=== PATIENT | male | born 1985 | race Caucasian/White ===

== ENCOUNTER 2016-11-14 19:29 | Emergency (ER) | payer MEDICAID | END 2016-11-14 21:02 | disposition home or self-care (01) | LOC: D.ER 19:29 | DX: M54.5 Low back pain (principal); Y04.2XXA Assault by strike against or bumped into by another person, initial encounter; Y93.89 Activity, other specified; Y92.89 Other specified places as the place of occurrence of the external cause; F17.200 Nicotine dependence, unspecified, uncomplicated ==

== ENCOUNTER 2017-08-27 14:48 | Emergency (ER) | payer OTHER | END 2017-08-27 17:42 | disposition home or self-care (01) | LOC: D.ER 14:48 | DX: S00.01XA Abrasion of scalp, initial encounter (principal); Y04.2XXA Assault by strike against or bumped into by another person, initial encounter; Y93.89 Activity, other specified; Y92.89 Other specified places as the place of occurrence of the external cause; S06.0X9A Concussion with loss of consciousness of unspecified duration, initial encounter; S16.1XXA Strain of muscle, fascia and tendon at neck level, initial encounter; F17.200 Nicotine dependence, unspecified, uncomplicated ==

== ENCOUNTER 2018-10-02 10:25 | Emergency (ER) | payer SELFPAY ==
[~2018-10-02] VITALS: Ht 177.8 cm; Wt 79.5 kg
[2018-10-02 10:41] VITALS: Ht 177.8 cm; Wt 79.5 kg
[2018-10-02] MEDS ORDERED: BACLOFEN20 M1 PO (13:25)
[2018-10-02] MEDS ORDERED: VOLTAREN75 MG PO (13:25)
[2018-10-02 13:49] VITALS: BP 108/072
== END 2018-10-02 13:50 | disposition home or self-care (01) ==
LOC: D.ER 10:25
DX: M25.511 Pain in right shoulder (principal); W18.30XA Fall on same level, unspecified, initial encounter; Y93.89 Activity, other specified; Y92.89 Other specified places as the place of occurrence of the external cause; M54.6 Pain in thoracic spine; F17.200 Nicotine dependence, unspecified, uncomplicated

== ENCOUNTER 2019-09-06 13:02 | Emergency (ER) | payer SELFPAY ==
[~2019-09-06] VITALS: Ht 177.8 cm; Wt 81.8 kg
[~2019-09-06 13:02] MED LIST: BACLOFEN20 M1 PO; VOLTAREN75 MG PO
[2019-09-06 13:05] VITALS: Ht 177.8 cm; Wt 81.8 kg
[2019-09-06 13:32] LABS: BASOPHILS 0.4 % (0-2); EOSINOPHILS 2.3 % (0-7); HEMATOCRIT 41.3 % (42.0-54.0); LYMPHOCYTES 32.2 % (15-50); MCH 30.7 pg (26.0-34.0); MCHC 33.9 g/dL (31.0-37.0); MCV 90.6 fL (80.0-100.0); MEAN PLATELET VOLUME 9.9 fL (7.4-10.4); MONOCYTES 12.4 % (2-11); NEUTROPHILS 52.7 % (40-80); RBC 4.56 10x6/uL (4.20-6.10); RDW 13.4 % (11.5-14.5); WBC 5.2 10x3/uL (4.8-10.8)
[2019-09-06 13:33] LABS: PLATELET COUNT 250 10x3/uL (130-400)
[2019-09-06 13:42] LABS: CALC OSMOLALITY 280 mosm/kg (275-300); CHLORIDE - SERUM 105 mmol/L (98-107); CREATININE - SERUM 0.9 mg/dL (0.6-1.3); SODIUM 142 mmol/L (136-145); UREA NITROGEN 13 mg/dL (7-18); eGFR NON AFRICAN AMERICAN > 90 mL/min (90-120)
[2019-09-06] MEDS ORDERED: MEDROL DOSE PACK4 MG PO (13:44)
[2019-09-06] MEDS ORDERED: ZITHROMAX500 MG PO (13:44)
[2019-09-06 13:46] LABS: GLUCOSE 59 mg/dL (74-106)
[2019-09-06 13:51] LABS: APTT 27.2 SECONDS (22.8-39.4); INR 1.03 (0.85-1.17)
[2019-09-06 14:07] LABS: ALBUMIN 3.8 g/dL (3.4-5.0); ALKALINE PHOSPHATASE 60 U/L (46-116); ALT (SGPT) 17 U/L (10-68); BILIRUBIN - TOTAL 0.58 mg/dL (0.2-1.3); CKMB 0.9 U/L (0.0-3.6); CREATINE KINASE 132 UL (21-232); MAGNESIUM - SERUM 1.7 mg/dL (1.8-2.4); PROTEIN - SERUM 7.1 g/dL (6.4-8.2)
[2019-09-06 14:28] LABS: TROPONIN-I < 0.017 ng/mL (0.000-0.060)
[2019-09-06 15:31] VITALS: BP 110/58
== END 2019-09-06 15:32 | disposition home or self-care (01) ==
LOC: D.ER 13:02
PROVIDERS: Emergency Medicine
DX: R07.89 Other chest pain (principal)

== ENCOUNTER 2020-05-19 13:04 | Emergency (ER) | payer SELFPAY ==
[~2020-05-19] VITALS: Ht 177.8 cm; Wt 81.8 kg
[~2020-05-19 13:04] MED LIST changes: +MEDROL DOSE PACK4 MG PO; +ZITHROMAX500 MG PO
[2020-05-19 13:40] VITALS: BP 132/77; Ht 177.8 cm; Wt 81.8 kg
[2020-05-19] MEDS ORDERED: ULTRAM50 MG PO (16:28)
== END 2020-05-19 16:35 | disposition home or self-care (01) ==
LOC: D.ER 13:04
DX: S90.112A Contusion of left great toe without damage to nail, initial encounter (principal); S93.502A Unspecified sprain of left great toe, initial encounter; Z86.73 Personal history of transient ischemic attack (TIA), and cerebral infarction without residual deficits; K21.9 Gastro-esophageal reflux disease without esophagitis; W22.8XXA Striking against or struck by other objects, initial encounter; Y93.9 Activity, unspecified; Y92.9 Unspecified place or not applicable